=== PATIENT | female | born 1965 | race Caucasian/White ===

== ENCOUNTER 2020-03-11 20:07 | Emergency (ER) | payer BC ==
[2020-03-11] MEDS ORDERED: Meclizine 25 MG Tab PO ONE (20:21)
--- NOTE | 2020-03-11 20:27 | EDM.PDOC ---
ED HPI GENERAL MEDICAL PROBLEM - General Chief Complaint: Head Injury Stated Complaint: DIZZINESS Time Seen by Provider: 03/11/20 20:09 head Pain Score (Numeric/FACES): 7 - Related Data Allergies Allergy/AdvReac Type Severity Reaction Status Date / Time morphine Allergy Hives Verified 03/11/20 20:15 Home Meds: Home Meds Levothyroxine Sodium [Synthroid] 150 mcg PO DAILY 11/14/14 [History] Past Medical History Other HEENT History: tinnitus - Infectious Disease History Infectious Disease History: Reports: None - Past Surgical History Female Surgical History: Reports: Section Social & Family History - Family History Family Medical History: No Pertinent Family History - Tobacco Use Tobacco Use Status *Q: Never Tobacco User - Caffeine Use Caffeine Use: Reports: Coffee, Tea - Recreational Drug Use Recreational Drug Use: No #1 Interpretation EKG Interpretation Comments: Heart rate = 81 bpm, normal sinus rhythm, normal QRS interval, no STEMI. EKG and rhythm strip interpreted by me at 2021 Course - Vital Signs Last Recorded V/S: Last Vital Signs Temp 97.6 F 03/11/20 20:17 Pulse 103 H 03/11/20 20:17 Resp 20 03/11/20 20:17 BP 148/99 H 03/11/20 20:17 Pulse Ox 98 03/11/20 20:17 - Orders/Labs/Meds Orders: Active Orders 24 hr Category Date Time Status EKG Documentation Completion [RC] STAT Care 03/11/20 20:24 Active Head wo Cont [CT] Stat Exams 03/11/20 20:21 Ordered Meds: Medications Discontinued Medications Generic Name Dose Route Start Last Admin Trade Name Marcos PRN Reason Stop Dose Admin Meclizine HCl 25 mg 03/11/20 20:21 03/11/20 20:25 Antivert PO 03/11/20 20:22 25 mg ONETIME ONE Administration Departure - Discharge Information Referrals: Kg Funez MD [Primary Care Provider] - Forms: ED Department Discharge Sepsis Event Note (ED) - Evaluation Sepsis Screening Result: No Definite Risk - Focused Exam Vital Signs: Vital Signs Temp Pulse Resp BP Pulse Ox 03/11/20 20:17 97.6 F 103 H 20 148/99 H 98
[2020-03-11] MEDS ORDERED: Ondansetron 4 MG Tab.DIS PO ONE (20:30)
--- NOTE | 2020-03-11 20:30 | EDM.PDOC ---
ED HPI GENERAL MEDICAL PROBLEM - General Chief Complaint: Head Injury Stated Complaint: DIZZINESS Time Seen by Provider: 03/11/20 20:09 Source of Information: Reports: Patient History Limitations: Reports: No Limitations - History of Present Illness INITIAL COMMENTS - FREE TEXT/NARRATIVE: HISTORY AND PHYSICAL: History of present illness: Patient is a 54-year-old female who presents to the emergency room with complaints of dizziness since falling and hitting her head on Friday. She states on Friday she was attempting to get into her vehicle when her foot got stuck and she slipped falling forward hitting her face on a wooden bench. She does not believe she had a loss of consciousness although became dizzy and felt "out of it" for a few seconds. Since the incident she has had intermittent episodes of dizziness and nausea. This was a mechanical fall. She states there was no chest pain, shortness of breath or any symptoms prior to her actually falling. Patient denies any fever, chills, headache, change in vision, syncope or near syncope. Denies any chest pain, back pain, shortness of breath or cough. Denies any abdominal pain, vomiting, diarrhea, constipation or dysuria. Has not noted any blood in urine or stool. Patient has been eating and drinking appropriately. *Patient does report she has been struggling with vertigo for a few months, has not been taking anything for this. Review of systems: As per history of present illness and below otherwise all systems reviewed and negative. Past medical history: As per history of present illness and as reviewed below otherwise noncontributory. Surgical history: As per history of present illness and as reviewed below otherwise noncontributory. Social history: See social history for further information Family history: As per history of present illness and as reviewed below otherwise noncontributory. Physical exam: General: Well developed and well nourished. Alert and orientated x 3. Nontoxic i n appearance and in no acute distress. Vital signs are stable and have been reviewed by me. Nursing notes were reviewed. HEENT: Healing bruising to left upper cheek and below her right eye, non-tender to palpation, normocephalic, pupils equal and reactive bilaterally, negative for conjunctival pallor or scleral icterus, mucous membranes moist, TMs normal bilaterally, throat clear, neck supple, nontender, trachea midline. No drooling or trismus noted. No meningeal signs. No hot potato voice noted. Lungs: Clear to auscultation, breath sounds equal bilaterally, chest nontender. Normal work of breathing, no accessory muscles used. Heart: S1S2, regular rate and rhythm without overt murmur Abdomen: Soft, nondistended, nontender. Negative for masses or hepatosplenomegaly. Negative for costovertebral tenderness. C-spine/Back: No pinpoint vertebral tenderness upon palpation. No crepitus, step-offs or obvious deformities. Patient is ambulatory into the emergency room without difficulty or deficit. Able to rock back on heels and walk on toes. Denies any urinary or fecal incontinence. Denies any numbness, tingling or saddle paresthesia. No concerns of serious infection, fracture or cord comp ression, or cauda equina syndrome. Deep tendon reflexes brisk bilaterally. Skin: Intact, warm, dry. No lesions or rashes noted. Hematologic: No petechiae or purpra. Mucosa appropriate color and normal nail bed color and refill. Extremities: Moves all extremities per self without difficulty or deficits, negative for cords or calf pain. Neurovascular unremarkable. Neuro: Awake, alert, oriented. Cranial nerves II through XII unremarkable. Cerebellum unremarkable. Motor and sensory unremarkable throughout. Exam nonfocal. Psychiatric: Mood and affect are appropriate. Normal thought process. Answering questions appropriately. Notes: She has no concern for domestic abuse and is not fearful. Her symptoms are likely post-concussive after her fall. Will get a head CT to rule out any occult fracture or bleed. Screening EKG was WNL with sinus rythm with rate of 81. Upon reevaluating the patient after she received the meclizine and Zofran she is concerned about her electrolyte status. She states she recently went on a keto diet and had changed a lot of the foods she has been eating and is concerned that her sodium or potassium could be low or high. She is requesting that I do some basic lab work before she is discharged. She remains vitally stable and has not had any change in status. Head CT and labs are normal. I have talked with the patient about today's findings, in addition to providing specific details for plan of care. Reassessment at the time of disposition demonstrates that the patient is in no acute distress. The patient is stable for discharge, counseling was provided and we discussed in great detail signs and symptoms that would prompt them to return to the Emergency Department. Medication, follow up and supportive care measures were reviewed and discussed. Voices understanding and is agreeable to plan of care. Denies any further questions or concerns at this time. Diagnostics: Head CT Therapeutics: Meclizine, Zofran Prescription: Meclizine, Zofran Impression: Post Concussion Vertigo Plan: 1. Today your head CT was within normal limits. Your lab work was also normal. 2. You can use the meclizine and Zofran as needed for symptomatic relief 3. We encourage you to follow up with Dr Funez next week for re-evaluation and further care/management. If your symptoms should worsen, new symptoms develop or any of the signs and symptoms we discussed should arise please return to the emergency room or call 911 (if needed). Definitive disposition and diagnosis as appropriate pending reevaluation and review of above. head Pain Score (Numeric/FACES): 7 - Related Data Allergies Allergy/AdvReac Type Severity Reaction Status Date / Time morphine Allergy Hives Verified 03/11/20 20:15 Home Meds: Home Meds Levothyroxine Sodium [Synthroid] 150 mcg PO DAILY 11/14/14 [History] Meclizine [Antivert] 25 mg PO BID PRN #20 tab 03/11/20 [Rx] Ondansetron [Zofran ODT] 4 mg PO Q6H PRN #8 tab.dis 03/11/20 [Rx] Past Medical History Other HEENT History: tinnitus - Infectious Disease History Infectious Disease History: Reports: None - Past Surgical History Female Surgical History: Reports: Section Social & Family History - Family History Family Medical History: No Pertinent Family History - Tobacco Use Tobacco Use Status *Q: Never Tobacco User - Caffeine Use Caffeine Use: Reports: Coffee, Tea - Recreational Drug Use Recreational Drug Use: No ED ROS GENERAL - Review of Systems Review Of Systems: Comprehensive ROS is negative, except as noted in HPI. ED EXAM, HEAD INJURY - Physical Exam Exam: See Below (See dictation) Course - Vital Signs Last Recorded V/S: Last Vital Signs Temp 97.6 F 03/11/20 20:17 Pulse 103 H 03/11/20 20:17 Resp 20 03/11/20 20:17 BP 148/99 H 03/11/20 20:17 Pulse Ox 98 03/11/20 20:17 - Orders/Labs/Meds Orders: Active Orders 24 hr Category Date Time Status EKG Documentation Completion [RC] STAT Care 03/11/20 20:24 Active Labs: Laboratory Tests 03/11/20 03/11/20 Range/Units 21:10 21:10 WBC 5.69 (4.0-11.0) K/uL RBC 4.49 (4.30-5.90) M/uL Hgb 13.5 (12.0-16.0) g/dL Hct 40.8 (36.0-46.0) % MCV 90.9 (80.0-98.0) fL MCH 30.1 (27.0-32.0) pg MCHC 33.1 (31.0-37.0) g/dL RDW Std Deviation 44.6 (28.0-62.0) fl RDW Coeff of Jimi 14 (11.0-15.0) % Plt Count 221 (150-400) K/uL MPV 11.10 (7.40-12.00) fL Neut % (Auto) 51.7 (48.0-80.0) % Lymph % (Auto) 34.4 (16.0-40.0) % [place] % (Auto) 12.3 (0.0-15.0) % Eos % (Auto) 1.2 (0.0-7.0) % Baso % (Auto) 0.4 (0.0-1.5) % Neut # (Auto) 2.9 (1.4-5.7) K/uL Lymph # (Auto) 2.0 (0.6-2.4) K/uL [place] # (Auto) 0.7 (0.0-0.8) K/uL Eos # (Auto) 0.1 (0.0-0.7) K/uL Baso # (Auto) 0.0 (0.0-0.1) K/uL Nucleated RBC % 0.0 /100WBC Nucleated RBCs # 0 K/uL Sodium 139 (136-145) mmol/L Potassium 4.0 (3.5-5.1) mmol/L Chloride 103 (98-107) mmol/L Carbon Dioxide 24.7 (21.0-32.0) mmol/L BUN 20 H (7.0-18.0) mg/dL Creatinine 1.0 (0.6-1.0) mg/dL Est Cr Clr Drug Dosing 69.55 mL/min Estimated GFR (MDRD) 57.8 ml/min Glucose 92 (74-106) mg/dL Calcium 9.4 (8.5-10.1) mg/dL Meds: Medications Discontinued Medications Generic Name Dose Route Start Last Admin Trade Name Freq PRN Reason Stop Dose Admin Meclizine HCl 25 mg 03/11/20 20:21 03/11/20 20:25 Antivert PO 03/11/20 20:22 25 mg ONETIME ONE Administration Ondansetron HCl 4 mg 03/11/20 20:30 03/11/20 20:35 Zofran Odt PO 03/11/20 20:31 4 mg ONETIME ONE Administration Departure - Departure Time of Disposition: 21:33 Disposition: Home, Self-Care 01 Clinical Impression: Post-concussion vertigo - Discharge Information Prescriptions: Meclizine [Antivert] 25 mg PO BID PRN #20 tab PRN Reason: Dizziness Ondansetron [Zofran ODT] 4 mg PO Q6H PRN #8 tab.dis PRN Reason: Nausea Instructions: Post-Concussion Syndrome, Dizziness, [id number] Referrals: Kg Funez MD [Primary Care Provider] - Forms: ED Department Discharge Additional Instructions: The following information is given to patients seen in the emergency department who are being discharged to home. This information is to outline your options for follow-up care. We provide all patients seen in our emergency department with a follow-up referral. The need for follow-up, as well as the timing and circumstances, are variable depending upon the specifics of your emergency department visit. If you don't have a primary care physician on staff, we will provide you with a referral. We always advise you to contact your personal physician following an emergency department visit to inform them of the circumstance of the visit and for follow-up with them and/or the need for any referrals to a consulting specialist. The emergency department will also refer you to a specialist when appropriate. This referral assures that you have the opportunity for follow-up care with a specialist. All of these measure are taken in an effort to provide you with optimal care, which includes your follow-up. Under all circumstances we always encourage you to contact your private physician who remains a resource for coordinating your care. When calling for follow-up care, please make the office aware that this follow-up is from your recent emergency room visit. If for any reason you are refused follow-up, please contact the [facility] Emergency Department at and asked to speak to the emergency department charge nurse. [facility] [address] [place] [id number] [facility] [address] [place] [id number] Thank you for choosing the [facility] emergency department in [place] for your medical needs today. It was a pleasure caring for you. Today you were seen in the emergency department for dizziness after head injury 1. Today your head CT was within normal limits. Your lab work was also normal. 2. You can use the meclizine and Zofran as needed for symptomatic relief 3. We encourage you to follow up with Dr Funez next week for re-evaluation and further care/management. If your symptoms should worsen, new symptoms develop or any of the signs and symptoms we discussed should arise please return to the emergency room or call 911 (if needed). Sepsis Event Note (ED) - Evaluation Sepsis Screening Result: No Definite Risk - Focused Exam Vital Signs: Vital Signs Temp Pulse Resp BP Pulse Ox 03/11/20 20:17 97.6 F 103 H 20 148/99 H 98 - My Orders Last 24 Hours: My Active Orders 03/11/20 20:24 EKG Documentation Completion [RC] STAT - Assessment/Plan Last 24 Hours: My Active Orders 03/11/20 20:24 EKG Documentation Completion [RC] STAT
--- NOTE | 2020-03-11 21:03 | CT ---
INDICATION: Status post fall for 1 week. Headache, dizziness, nausea TECHNIQUE: CT Head without i.v. contrast. COMPARISON: None FINDINGS: CSF space: The ventricles are normal for age. Brain: No evidence of mass, acute infarction or hemorrhage is seen. No mass-effect or midline shift is seen. The brain parenchyma is otherwise normal in appearance with preservation of the cool-white matter junction. Calvarium: The visualized paranasal sinuses are well aerated. The mastoid air cells are clear. The visualized orbits are grossly unremarkable. The calvarium is unremarkable in appearance with no fractures identified. IMPRESSION: 1. No evidence of acute infarction, intracranial hemorrhage, or mass-effect seen. Please note that all CT scans at this facility use dose modulation, iterative reconstruction, and/or weight-based dosing when appropriate to reduce radiation dose to as low as reasonably achievable. Dictated by: Marv Dueñas MD @ 03/11/2020 21:02:05 (Electronically Signed)
[2020-03-11 21:32] LABS: CARBON DIOXIDE,CO2 24.7 mmol/L (21.0-32.0)
[2020-03-11 21:56] VITALS: BP 132/71; PULSE 78
== END 2020-03-11 21:48 | disposition home or self-care (01) ==
LOC: MW.ED 20:07
DX: R42 Dizziness and giddiness (principal); F07.81 Postconcussional syndrome; Z88.5 Allergy status to narcotic agent; Z79.899 Other long term (current) drug therapy
CPT/HCPCS: 36415; 70450; 80048; 85025; 93005; 99284; A9270; 93010; 99283